=== PATIENT | male | born 1960 | race Caucasian/White ===

== ENCOUNTER → 2017-02-01 | Day surgery (SDC) | payer BC ==
[~2017-02-01] MED LIST: BUPIVACAINE/EPINEPHRINE 0.5% PF 30 ML VIAL ONE; KETOROLAC TROMETHAMINE 30 MG/ML (IVP) VIAL IV PUSH ONE; LACTATED RINGER'S 1000 ML INJ 1,000 ML ONE; MIDAZOLAM HCL 2 MG/2 ML VIAL ONE; ONDANSETRON HCL 4 MG/2 ML VIAL IV PUSH ONE; PROPOFOL 200 MG/20 ML AMP IV ONE; ceFAZolin 2 GM PREMIX 50 ML ONE
--- NOTE | 2017-02-03 16:13 | MP ---
cc: TANYA KAYE M.D. DATE OF SURGERY: 02/01/2017 PREOPERATIVE DIAGNOSIS Right knee medial meniscus tear. POSTOPERATIVE DIAGNOSIS Right knee medial meniscus tear. PROCEDURE Right knee arthroscopic partial medial meniscectomy. ANESTHESIA General. SURGEON Tanya Kaye MD ESTIMATED BLOOD LOSS Minimal. DRAINS None. SPECIMEN Fragments discarded. COMPLICATIONS None known. 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 He now presents for arthroscopic surgery. The risks and benefits thoroughly discussed in detail. Informed consent was obtained. PROCEDURE The patient was brought in the operating room, he was placed under general anesthetic. The right lower extremity was draped and prepped in the usual sterile fashion. IV antibiotics were given. Time-out was completed. Blunt trocar used to introduce the cannula into the lateral portal which had Marcaine in it. The first photograph shows some central chondromalacia on the patella but no unstable cartilage. The trochlea looked normal. Notch showed normal-appearing ACL. The lateral compartment appeared normal. The medial compartment showed small areas of delaminating cartilage on the weightbearing portion of the medial femoral condyle and an unstable tear involving the posterior horn of the medial meniscus. Arthroscopic photograph documented these findings. We proceeded with arthroscopic partial medial meniscectomy using a combination of basket forceps and arthroscopic shaver. A gentle chondroplasty was performed on the unstable cartilage on the weightbearing portion of medial femoral condyle. Followup photograph shows the result. We did switch over a switching stick and came in with a shaver to smooth and contour from this angle. Repeat diagnostic arthroscopy to the lateral portal showed no loose bodies. Arthroscopic equipment was removed. Marcaine had been injected about the portals. Steri-Strips applied. Sterile dressing applied. Ubaldo wrap applied. The patient was awoken and returned to the recovery room in stable condition. MD SUYAPA Diaz/JOSE ALFREDO /11:11 AM /3:52 PM
== END | disposition home or self-care (01) ==
LOC: ESDC 08:24
PROVIDERS: ATTEND Orthopaedic Surgery Sports Medicine
DX: S83.231A Complex tear of medial meniscus, current injury, right knee, initial encounter (principal)
CPT/HCPCS: 01400; 29881; J0690; J1885; J2250; J2405; J3010; J7120